=== PATIENT | male | born 1970 | race Caucasian/White ===

== ENCOUNTER → 2023-10-11 06:27 | Day surgery (SDC) | payer BC, SELFPAY | LOC: GI 06:27 | PROVIDERS: ATTENDING PHYSICIAN Internal Medicine Gastroenterology | DX: D12.3 Benign neoplasm of transverse colon (principal); D12.7 Benign neoplasm of rectosigmoid junction; K64.8 Other hemorrhoids; K21.00 Gastro-esophageal reflux disease with esophagitis, without bleeding; K29.80 Duodenitis without bleeding; D50.9 Iron deficiency anemia, unspecified | CPT/HCPCS: 45385; 43239; 88305 ==

== ENCOUNTER 2024-01-26 16:56 | Emergency (ER) | payer BC, SELFPAY ==
[2024-01-26 16:57] VITALS: BP 171/85
--- NOTE | 2024-01-26 18:46 | ED.SKININJ ---
HPI-Injury
General
Chief Complaint: Skin Surface Trauma
Source: patient
Exam Limitations: none
Time Seen by Provider: 01/26/24 18:24
History of Present Illness-Injury
Initial Injury comments:
53-year-old male presents with laceration of forehead he sustained today. He walked into a metal object in his yard. Tetanus vaccine up-to-date. No loss conscious. No headache. No neck pain. No other complaints
Past History
Past History
ED Past Medical History: None
Social History
Tobacco: Non-smoker
Alcohol: Daily
Personal:
Living: with family
Employment: Employed
Phy Exam
Physical Exam
Physical Exam:
General: Well-appearing male no acute respiratory distress
HEENT: Normocephalic
Skin: 3 cm ragged flap type laceration midportion right side of forehead. This is superficial. There is mild bleeding. The flap is well-vascularized
Neurologic: Normal gait conversing appropriately pupils equal round reactive to light
Course
Vital Signs
Initial and Last Documented VS:
Initial Vital Signs
Temp Pulse Resp BP Pulse Ox
98.4 F 84 16 171/85 99
01/26/24 16:57 01/26/24 16:57 01/26/24 16:57 01/26/24 16:57 01/26/24 16:57
Last Documented Vital Signs
Temp Pulse Resp BP Pulse Ox
98.4 F 84 16 171/85 99
01/26/24 16:57 01/26/24 16:57 01/26/24 16:57 01/26/24 16:57 01/26/24 16:57
MDM/Problems Addressed
Differential Diagnosis Includes:
Laceration to forehead. Discussed wound care options. This is to convoluted to apply glue. Recommended suture closure. Patient in agreement. The wound was cleansed with saline anesthetized with 1% lidocaine and five 6-0 Prolene sutures were
placed in a simple erupted fashion to provide wound edge approximation and hemostasis. Wound care instructions given patient stable for discharge
*Critical Care Note
Total Time (30-74mins, 75-104mins- exclusive of procedures): Not Applicable
ED Attending Note
-
Portions of this chart may have been created with voice recognition software.� Occasional wrong word or��sound alike� substitutions may have occurred due to the inherent limitations of voice recognition software.
Discharge Plan
Departure
Patient Disposition: Home (Routine Discharge)
Date of Disposition: 01/26/24
Time of Disposition: 18:48
Patient with high blood pressure during this ER visit?: No
Discharge Problem:
Laceration
Instructions: Laceration Repair With Stitches (DC)
Prescriptions:
No Action
lisinopril 20 mg Tablet
20 mg PO DAILY
Referrals:
Dayan Mi MD [Family Provider] -
Activity Restrictions/Additional Instructions:
Apply antibacterial limited to the wound daily. Have sutures removed in 5 to 7 days. Keep protected from sun
Interventions
Interventions:
ED-Skin Assessment Last Done: 01/26/24 18:14
Discharge Date and Time
Print Language: BULGARIAN
[2024-01-26 18:48] VITALS: BP 160/100
== END 2024-01-26 18:52 | disposition home or self-care (01) ==
LOC: EMR 16:56
PROVIDERS: EMERGENCY PHYSICIAN Emergency Medicine; FAMILY PHYSICIAN Internal Medicine
DX: S01.81XA Laceration without foreign body of other part of head, initial encounter (principal); W22.09XA Striking against other stationary object, initial encounter
CPT/HCPCS: 12013; 99282